=== PATIENT | female | born 1995 | race African-American/Black ===

== ENCOUNTER 2022-12-05 14:22 | Emergency (ER) | payer MEDICAID ==
[~2022-12-05] VITALS: Ht 152.4 cm; Wt 44.0 kg
[2022-12-05 14:28] VITALS: BP 97/61
[2022-12-05] MEDS ORDERED: CEPH500C2 MT (15:26)
[2022-12-05] MEDS ORDERED: SULF1TAB48 MT (15:26)
[2022-12-05] MEDS ORDERED: MUPI15CR11 TP (15:26)
[2022-12-05] MEDS ORDERED: HIBIL TP (15:26)
== END 2022-12-05 15:50 | disposition home or self-care (01) ==
LOC: ER 14:22
DX: L01.00 Impetigo, unspecified (principal); L03.115 Cellulitis of right lower limb
CPT/HCPCS: 99283